=== PATIENT | male | born 1995 ===

== ENCOUNTER 2019-09-06 09:01 | Emergency (ER) | payer MEDICAID ==
[~2019-09-06] VITALS: Ht 175.3 cm; Wt 79.5 kg
[2019-09-06 09:02] VITALS: Ht 175.3 cm; Wt 79.5 kg
[2019-09-06] MEDS ORDERED: HYDROCODON-ACE1 EAC7 PO (09:45)
[2019-09-06] MEDS ORDERED: KEFLEX500 MG PO (09:45)
[2019-09-06 10:04] VITALS: BP 122/68
[2019-09-06] MEDS ORDERED: IBUPROFEN800 MG PO (22:15)
== END 2019-09-06 10:08 | disposition home or self-care (01) ==
LOC: D.ER 09:01
DX: S61.211A Laceration without foreign body of left index finger without damage to nail, initial encounter (principal); S62.631A Displaced fracture of distal phalanx of left index finger, initial encounter for closed fracture; W45.8XXA Other foreign body or object entering through skin, initial encounter; Y93.9 Activity, unspecified; Y92.9 Unspecified place or not applicable

== ENCOUNTER 2019-09-06 21:50 | Emergency (ER) | payer MEDICAID ==
[~2019-09-06] VITALS: Ht 175.3 cm; Wt 79.5 kg
[~2019-09-06 21:50] MED LIST: HYDROCODON-ACE1 EAC7 PO; KEFLEX500 MG PO
[2019-09-06 22:03] VITALS: Ht 175.3 cm; Wt 79.5 kg
[2019-09-06] MEDS ORDERED: IBUPROFEN800 MG PO (22:15)
[2019-09-06 22:39] VITALS: BP 130/77
== END 2019-09-06 22:39 | disposition home or self-care (01) ==
LOC: D.ER 21:50
DX: S61.215A Laceration without foreign body of left ring finger without damage to nail, initial encounter (principal); M79.645 Pain in left finger(s)

== ENCOUNTER 2019-09-11 16:36 | Emergency (ER) | payer MEDICAID ==
[~2019-09-11] VITALS: Ht 175.3 cm; Wt 79.5 kg
[~2019-09-11 16:36] MED LIST changes: +IBUPROFEN800 MG PO
[2019-09-11 16:53] VITALS: BP 119/58; Ht 175.3 cm; Wt 79.5 kg
[2019-09-11] MEDS ORDERED: ULTRAM50 MG PO (17:21)
== END 2019-09-11 17:32 | disposition home or self-care (01) ==
LOC: D.ER 16:36
DX: Z48.00 Encounter for change or removal of nonsurgical wound dressing (principal); S61.219A Laceration without foreign body of unspecified finger without damage to nail, initial encounter; X58.XXXA Exposure to other specified factors, initial encounter